=== PATIENT | female | born 1990 ===

== ENCOUNTER 2017-04-21 11:31 | Emergency (ER) | payer OTHER ==
[2017-04-21 11:31] VITALS: BMI 39.2
[2017-04-21 12:05] VITALS: BP 120/70; PULSE 73; RESP 18; TEMP 96; O2SAT 98
--- NOTE | 2017-04-21 13:37 | ED PDOC ---
HPI: CCC, URI, Sore Throat Time Seen by Provider: 04/21/17 12:07 Chief Complaint (Nursing): ENT Problem Chief Complaint (Provider): cough and sore throat History Per: Patient History/Exam Limitations: no limitations Onset/Duration Of Symptoms: Days (x 4) Current Symptoms Are (Timing): Still Present Additional Complaint(s): Estefani is a 27 year old female who presents to the Emergency Department complaining with sore throat and subjective fever for the past 5 days. Patient completed a course of antibiotics one month ago for bronchitis but still has persistent cough as well. She denies any recent travel. 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 Lucian Torres Past Medical History Reviewed: Historical Data, Nursing Documentation, Vital Signs Vital Signs: Last Vital Signs Temp 96 F L 04/21/17 12:02 Pulse 73 04/21/17 12:02 Resp 18 04/21/17 12:02 BP 120/70 04/21/17 12:02 Pulse Ox 98 04/21/17 14:22 - Medical History PMH: No Chronic Diseases - Surgical History Surgical History: (x2) - Family History Family History: States: No Known Family Hx - Living Arrangements Living Arrangements: With Family - Social History Current smoker - smoking cessation education provided: No Alcohol: None Drugs: Denies - Immunization History Hx Tetanus Toxoid Vaccination: No - Home Medications Home Medications: Ambulatory Orders Medication Instructions Recorded Bisacodyl [Ducolax] 5 mg PO DAILY PRN #20 ect 12/07/14 Cephalexin [Keflex] 500 mg PO QID #28 cap 12/07/14 Ferrous Sulfate [Feosol] 325 mg PO BID #0 tab 12/07/14 oxyCODONE/Acetaminophen [Percocet 2 tab PO Q4 PRN #0 tab 12/07/14 5/325 mg Tab] Ondansetron ODT [Zofran ODT] 4 mg PO Q6 PRN #16 odt 12/19/15 Azithromycin [Zithromax] 250 mg PO DAILY #4 tab 03/13/17 Promethazine [Phenergan Syrup] 6.26 mg PO Q6 #100 dose 03/13/17 Albuterol HFA [Ventolin HFA 90 1 puff IH ASDIR #1 unit 04/21/17 mcg/actuation (8 g)] Benzonatate 200 mg PO TID PRN #20 capsule 04/21/17 - Allergies Allergies/Adverse Reactions: Allergies Allergy/AdvReac Type Severity Reaction Status Date / Time No Known Allergies Allergy Verified 12/04/14 07:00 Review of Systems ROS Statement: Except As Marked, All Systems Reviewed And Found Negative Constitutional: Positive for: Fever (tactile, not measured) ENT: Positive for: Throat Pain Respiratory: Positive for: Cough. Negative for: Shortness of Breath, Hemoptysis Gastrointestinal: Negative for: Nausea, Vomiting Neurological: Negative for: Headache, Dizziness Physical Exam - Reviewed Nursing Documentation Reviewed: Yes Vital Signs Reviewed: Yes - Physical Exam Appears: Positive for: Well, Non-toxic, No Acute Distress Skin: Negative for: Rash Eye Exam: Positive for: Normal appearance ENT: Positive for: TM Is/Are (normal bilaterally), Pharyngeal Erythema. Negative for: Nasal Congestion, Tonsillar Exudate, Tonsillar Swelling Cardiovascular/Chest: Positive for: Regular Rate, Rhythm Respiratory: Positive for: Normal Breath Sounds. Negative for: Respiratory Distress Extremity: Positive for: Normal ROM Neurologic/Psych: Positive for: Alert, Oriented - Laboratory Results Urine POC: Negative - ECG O2 Sat by Pulse Oximetry: 98 Pulse Ox Interpretation: Normal - Other Rad CXR X-Ray: Interpreted by Me, Viewed By Me X-Ray Interpretation: no acute finding Medical Decision Making Medical Decision Making: Time: 12:35 Impression(s): 27 year old with sore throat and cough Plan: - Chest X-Ray - Throat Culture - Influenza A B - Rapid Strep Group A Antigen Flu and strep are negative. Time:14:22 - Discussed results with patient. Rx given for tessalon perles and ventolin inhaler. Advised NSAID's for pain, fluids and rest. Scribe Attestation: Documented by Valerio Vázquez, acting as a scribe for JACINTO English Provider Scribe Attestation: All medical record entries made by the Scribe were at my direction and personally dictated by me. I have reviewed the chart and agree that the record accurately reflects my personal performance of the history, physical exam, medical decision making, and the department course for this patient. I have also personally directed, reviewed, and agree with the discharge instructions and disposition. Disposition - Clinical Impression Clinical Impression: Sore throat, Cough - Patient ED Disposition Is Patient to be Admitted: No Counseled Patient/Family Regarding: Studies Performed, Diagnosis, Need For Followup, Rx Given - Disposition Referrals: Ga Torres JD, MD [Family Provider] - Disposition: Routine/Home Disposition Time: 14:28 Condition: STABLE Additional Instructions: Take prescription medications as directed as needed for cough. Over-the- counter Tylenol or Advil for throat pain as needed. Drink plenty of fluids and get plenty of rest. Follow-up with primary doctor for any persistent symptoms. Prescriptions: Albuterol HFA [Ventolin HFA 90 mcg/actuation (8 g)] 1 puff IH ASDIR #1 unit Benzonatate 200 mg PO TID PRN #20 capsule PRN Reason: Cough Instructions: Cold Symptoms (ED), Pharyngitis (ED) Forms: [facility] ([place]), [facility] ED School/Work Excuse
--- NOTE | 2017-04-21 13:44 | RAD ---
HISTORY: cough COMPARISON: None available. TECHNIQUE: Chest PA and lateral FINDINGS: Examination limited by habitus. LUNGS: No focal consolidation. Please note that chest x-ray has limited sensitivity for the detection of pulmonary masses. PLEURA: No significant pleural effusion identified. No definite pneumothorax . CARDIOVASCULAR: The cardiomediastinal silhouette appears within normal limits of size. OSSEOUS STRUCTURES: No acute osseous abnormality identified. VISUALIZED UPPER ABDOMEN: Unremarkable. OTHER FINDINGS: None. IMPRESSION: No focal consolidation, significant pleural effusion, or definite pneumothorax identified.
== END 2017-04-21 14:53 | disposition home or self-care (01) ==
LOC: H.ER 11:31
DX: J02.9 Acute pharyngitis, unspecified (principal); R05 Cough